=== PATIENT | male | born 1955 | race African-American/Black ===

== ENCOUNTER → 2017-01-23 | Outpatient (CLI) | payer OTHER ==
[~2017-01-23] MED LIST: AMLODIPINE BESYL5 MG PO; ASPIRIN81 M2 PO; Ecotrin PO; HYDROCHLOROTH12.5 M3 PO; NAPROSYN500 MG PO; NORVASC10 MG PO; PROSTATE MEDICATION; PROZAC20 MG PO; VALIUM2 MG PO
== END ==
LOC: AMB 11:30
DX: L72.0 Epidermal cyst (principal)
CPT/HCPCS: 88304

== ENCOUNTER → 2017-02-22 | Outpatient (CLI) | payer OTHER | LOC: AMB 11:00 | DX: Z09 Encounter for follow-up examination after completed treatment for conditions other than malignant neoplasm (principal) | CPT/HCPCS: 99212 ==